=== PATIENT | female | born 1985 | race Caucasian/White ===

== ENCOUNTER 2019-06-04 18:58 | Emergency (ER) | payer MEDICAID ==
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
[2019-06-04 19:57] LABS: BARBITURATE SCREEN,URINE NEGATIVE (NEGATIVE); BENZODIAZEPINES SCREEN,URINE NEGATIVE (NEGATIVE); TCA SCREEN,URINE NEGATIVE (NEGATIVE); THC SCREEN,URINE 50 NG/ML NEGATIVE (NEGATIVE)
[2019-06-04 20:17] LABS: ANION GAP 18.1 mmol/L (5-15); CHLORIDE,CL 103 mmol/L (98-115); SODIUM,NA 143 mmol/L (136-145)
--- NOTE | 2019-06-04 20:19 | CR ---
[id number] RAD/RAD Chest PA And Lateral EXAM: FRONTAL AND LATERAL CHEST INDICATION: SYNCOPE/SEIZURE COMPARISON: None. DISCUSSION: The heart and lungs are normal in appearance. IMPRESSION: 1. Negative exam. Arjun Brown MD 06/04/192017 Thank you for allowing us to participate in the care of your patient.
--- NOTE | 2019-06-05 07:55 | CT ---
[id number] CT/CT Head WO IV EXAM: CT Head WO IV CLINICAL DATA: SYNCOPE. SEIZURE COMPARISON: NO PREVIOUS SIMILAR EXAM IS AVAILABLE FOR COMPARISON. FINDINGS: There is no mass or mass effect. There is no hemorrhage or hydrocephalus. There are no extra-axial fluid collections. There are no sites of abnormal attenuation. IMPRESSION: NO PLAIN CT EVIDENCE OF ACUTE INTRACRANIAL PROCESS. Atul Mckenna MD 06/05/19 0753 Thank you for allowing us to participate in the care of your patient.
== END 2019-06-04 22:06 | disposition home or self-care (01) ==
LOC: KA.ED 18:58
DX: R55 Syncope and collapse (principal); Z91.14 Patient's other noncompliance with medication regimen; F32.9 Major depressive disorder, single episode, unspecified; F41.0 Panic disorder [episodic paroxysmal anxiety]; F43.10 Post-traumatic stress disorder, unspecified; M19.90 Unspecified osteoarthritis, unspecified site; F17.210 Nicotine dependence, cigarettes, uncomplicated; Z91.041 Radiographic dye allergy status; Z79.899 Other long term (current) drug therapy
CPT/HCPCS: 36415; 70450; 71046; 80053; 80305-QW; 82550; 82553; 84484; 84703; 85025; 93005; 99284-25

== ENCOUNTER 2019-07-11 17:07 | Emergency (ER) | payer MEDICAID ==
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
== END 2019-07-11 18:30 | disposition home or self-care (01) ==
LOC: KA.ED 17:07
DX: M65.9 Synovitis and tenosynovitis, unspecified (principal); R21 Rash and other nonspecific skin eruption; F32.9 Major depressive disorder, single episode, unspecified; F41.9 Anxiety disorder, unspecified; F43.10 Post-traumatic stress disorder, unspecified; F17.210 Nicotine dependence, cigarettes, uncomplicated; Z79.899 Other long term (current) drug therapy; Z91.041 Radiographic dye allergy status
CPT/HCPCS: 99283

== ENCOUNTER 2019-07-16 14:36 | Emergency (ER) | payer MEDICAID ==
--- NOTE | 2019-07-16 15:36 | CR ---
[id number] RAD/RAD Wrist Right 3V Min EXAM: 4 VIEWS RIGHT WRIST. INDICATION: PAIN. COMPARISON: None. DISCUSSION: No fracture, dislocation or other acute osseous abnormality. IMPRESSION: 1. No acute osseous abnormalities. Claudio Watt DO 07/16/19 1534 Thank you for allowing us to participate in the care of your patient.
[2019-07-16] MEDS ORDERED: predniSONE 20 MG Tab PO ONE (15:38)
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
== END 2019-07-16 16:05 | disposition home or self-care (01) ==
LOC: KA.ED 14:36
DX: M65.9 Synovitis and tenosynovitis, unspecified (principal); F17.210 Nicotine dependence, cigarettes, uncomplicated; Z79.899 Other long term (current) drug therapy; Z91.041 Radiographic dye allergy status
CPT/HCPCS: 73110-RT; 99283-25; A9270-GY